=== PATIENT | male | born 1960 | race Caucasian/White ===

== ENCOUNTER 2017-01-13 08:14 | Outpatient (CLI) | payer OTHER ==
[2014-06-19 11:46] VITALS: BP 122/76
[2017-01-13 09:20] LABS: eGFR (African) > 60; eGFR (Non-African) > 60
== END 2017-01-13 08:15 ==
LOC: LAB 08:14
PROVIDERS: ATTEND Family Medicine
DX: E11.9 Type 2 diabetes mellitus without complications (principal)
CPT/HCPCS: 36415; 80053; 80061; 83036

== ENCOUNTER 2018-04-30 22:27 | Emergency (ER) | payer BC ==
--- NOTE | 2018-04-30 22:49 | ED Physician Documentation ---
General Adult - HISTORIAN Historian: patient - HPI Stated Complaint: abd pain Chief Complaint: General Adult Onset: hours Timing: still present Severity: moderate Further Comments: yes (Pt is a 57 yo male with abd pain in mid abdomen. Pain began 2 days ago and has been getting progressively worse. Pt has had similar pains in the past but it did not last as long and was not so intense. Pt has not had fever. He has had forceful vomiting since arriving in ER.) - ROS CONST: no problems EYES/ENT: none CVS/RESP: none GI/: abdominal pain MS/SKIN/LYMPH: none - PAST HX Past History: other (DM, HTN, Hernia repair.) Allergies/Adverse Reactions: Allergies Allergy/AdvReac Type Severity Reaction Status Date / Time No Known Allergies Allergy Verified 04/08/12 13:11 - SOCIAL HX Smoking History: non-smoker - FAMILY HX Family History: No - VITAL SIGNS Vital Signs: Vital Signs Temp Pulse Resp BP Pulse Ox 122/76 06/19/14 11:46 - REVIEWED ASSESSMENTS Nursing Assessment Reviewed: Yes Vitals Reviewed: Yes Progress - Progress Progress: Simethicone 80 mg po no change NS 1 L IVF Toradol [address] abdomen and pelvis with contrast Clinical history: Mid upper abdominal pain for 2 days. Nausea and vomiting. Contrast administered: 93 mL of Omnipaque. Findings: The visualized lung bases are clear. The liver is diffusely hypodense consistent with steatosis. Gallbladder is normally distended. There is no focal abnormality in the liver or spleen. There is no pancreatic or adrenal abnormality. Right renal cyst is present in the upper pole. The kidneys otherwise demonstrate symmetric enhancement. There is no retroperi toneal mass or significant adenopathy. Vascular calcification is present in the abdominal aorta without evidence of aneurysm. There is no retroperitoneal mass or significant adenopathy. The appendix is visualized and is within normal limits. Gas and stool are present in the colon. Bladder is unremarkable. There are mildly distended proximal and mid small bowel loops with decompressed distal small bowel suggesting partial obstruction. There is a small bowel feces sign in the mid abdomen at the level of the umbilicus. Small amount of free fluid seen in the pelvis. Impression: 1. Partial mid small bowel obstruction. 2. Small amount of free fluid in the pelvis. 3. Hepatic steatosis. 4. Vascular calcification NG tube placed Transfer to Hosp. Dr. Christiansen General Adult Physical Exam - PHYSICAL EXAM GENERAL APPEARANCE: moderate distress EENT: pharynx normal NECK: normal inspection, supple RESPIRATORY: no resp distress, chest non-tender, breath sounds normal CVS: reg rate & rhythm, heart sounds normal ABDOMEN: soft, tenderness (mid abdomen), decreased BS BACK: normal inspection, no CVA tenderness SKIN: warm/dry, normal color EXTREMITIES: non-tender, normal range of motion, no evidence of injury, no edema NEURO: oriented X3, motor nml, sensation nml Discharge Clincal Impression: Partial small bowel obstruction Referrals: Franny Verde MD [Primary Care Provider] - Condition: Stable Disposition: XFER SHT-TRM HOSP Decision to Admit: NO Decision Time: 03:15
[2018-04-30] MEDS ORDERED: 0.9 % SODIUM CHLORIDE 1,000 ML IV ONE (22:59)
[2018-04-30] MEDS ORDERED: SIMETHICONE 80 MG TAB.CHEW PO STA (22:59)
[2018-04-30 23:25] LABS: MEAN CORPUSCULAR HEMOGLOBIN 32.1 pg (28.0-34.0)
[2018-04-30 23:26] LABS: BASOPHILS % 0.6 (0.0-1.5); EOSINOPHILS % 2.7 % (0.0-6.8); MONOCYTES % 5.5 % (0.0-11.0); NEUTROPHILS # 8.4 # k/uL (1.4-7.7)
[2018-04-30 23:31] LABS: eGFR (Non-African) > 60
[2018-05-01] MEDS ORDERED: HYDROcodone /APAP 5/325 1 EACH TABLET PO ONE (00:26)
[2018-05-01] MEDS ORDERED: ONDANSETRON HCL 4 MG TAB.RAPDIS PO ONE (00:27)
--- NOTE | 2018-05-01 04:08 | Diagnostic Imaging Report ---
MAXIME RICHMOND [facility] [address] [facility] [address] [place] [address]. [id number] Report Submission Date: May 01, 2018 2:34:01 AM FROTHING MACHINE OPERATOR Patient Study Name: DANISH DELAROSA Date: May 01, 2018 1:46:45 AM FROTHING MACHINE OPERATOR Modality Type: CT\SR Gender: M Description: CT ABD PELVIS W/ CON : 64 Institution: [facility] Physician: MAXIME RICHMOND CT abdomen and pelvis with contrast Clinical history: Mid upper abdominal pain for 2 days. Nausea and vomiting. Contrast administered: 93 mL of Omnipaque. Findings: The visualized lung bases are clear. The liver is diffusely hypodense consistent with steatosis. Gallbladder is normally distended. There is no focal abnormality in the liver or spleen. There is no pancreatic or adrenal abnormality. Right renal cyst is present in the upper pole. The kidneys otherwise demonstrate symmetric enhancement. There is no retroperitoneal mass or significant adenopathy. Vascular calcification is present in the abdominal aorta without evidence of aneurysm. There is no retroperitoneal mass or significant adenopathy. The appendix is visualized and is within normal limits. Gas and stool are present in the colon. Bladder is unremarkable. There are mildly distended proximal and mid small bowel loops with decompressed distal small bowel suggesting partial obstruction. There is a small bowel feces sign in the mid abdomen at the level of the umbilicus. Small amount of free fluid seen in the pelvis. Impression: 1. Partial mid small bowel obstruction. 2. Small amount of free fluid in the pelvis. 3. Hepatic steatosis. 4. Vascular calcification Electronically signed on May 01, 2018 2:34:01 AM FROTHING MACHINE OPERATOR by: Rob THACKER
[2018-05-01] MEDS ORDERED: KETOROLAC TROMETHAMINE 30 MG/1ML VIAL IVP ONE (04:13)
[2018-05-01 04:15] VITALS: BP 137/105
--- NOTE | 2018-05-01 04:15 | Diagnostic Imaging Report ---
MAXIME RICHMOND [facility] [address] [facility].[address] [id number] Report Submission Date: May 01, 2018 4:12:14 AM TRAINMASTER Patient Study Name: DANISH DELAROSA Date: May 01, 2018 3:49:01 AM TRAINMASTER Modality Type: DX Gender: M Description: ABDOMEN 1 VIEW : 64 Institution: [facility] Physician: MAXIME RICHMOND The [facility] upright abdomen Clinical history: Nasogastric tube placement Findings: A nasogastric tube has been placed to body of the stomach. Electronically signed on May 01, 2018 4:12:14 AM TRAINMASTER by: Rodo THACKER
== END 2018-05-01 04:15 | disposition short-term general hospital (02) ==
LOC: ED 22:27
DX: K56.600 Partial intestinal obstruction, unspecified as to cause (principal)
CPT/HCPCS: 36415; 74018; 74177; 80053; 83690; 85025; 99285; J7030; Q9967; S1016

== ENCOUNTER 2018-11-24 13:05 | Outpatient (CLI) | payer BC | END 2018-11-24 13:07 | LOC: LAB 13:05 | PROVIDERS: ATTEND Family Medicine | DX: E11.9 Type 2 diabetes mellitus without complications (principal) | CPT/HCPCS: 36415; 83036 ==

== ENCOUNTER 2019-01-28 11:50 | Outpatient (CLI) | payer BC ==
[2019-01-28 13:10] LABS: BASOPHILS % 0.5 % (0.0-1.5); NEUTROPHILS # 3.6 # k/uL (1.4-7.7)
[2019-01-28 13:11] LABS: eGFR (Non-African) > 60
--- NOTE | 2019-01-28 13:56 | Diagnostic Imaging Report ---
PATIENT MR#: [id number] PATIENT PATIENT NAME: DANISH DELAROSA DATE OF : 1960 REFERRING PHYSICIAN: Ana Weber EXAM DATE: 01/28/2019 ACCESSION NUMBER: [id number] EXAM DESCRIPTION: US ABDOMEN LIMITED Exam: Abdominal ultrasound. History: History of umbilical hernia Real-time grayscale imaging of the abdomen is performed. Over the area of interest herniated loops o f bowel are identified occurring adjacent to what appears to be a previous hernia repair. No other unusual fluid collections or masses are identified. Impression: Recurrence abdominal wall hernia containing some loops of bowel are noted on this study adjacent to a previous repair. If indicated CT may be beneficial to further characterize. Read by: Dr. Rafael Jean Baptiste Transcribed by: Transcribed Date: Electronically signed by: Dr. Rafael Jean Baptiste Date signed: 01/28/2019 1:55:53 PM
== END 2019-01-28 12:20 ==
LOC: OUT 11:50
PROVIDERS: ATTEND Nurse Practitioner Family
DX: K42.9 Umbilical hernia without obstruction or gangrene (principal)
CPT/HCPCS: 36415; 76705; 80053; 85025; 99202

== ENCOUNTER 2019-02-09 13:48 | Outpatient (CLI) | payer BC ==
[~2019-02-09 13:48] MED LIST: BUPIVACAINE HCL 0.25% (2.5MG/ML) PF 10ML VIAL IV ONE; Lidocaine 1% 5ml 10 MG/ML VIAL ONE; methylPREDNISolone ACETATE 40 MG/ML VIAL IM ONE
--- NOTE | 2019-02-14 14:13 | CONSULTATION REPORT ---
CHIEF COMPLAINT: Bilateral thumb pain. HISTORY OF PRESENT ILLNESS: This 58-year-old white male is seen per request of Dr. Franny Verde in the family practice office here at [place], [place], for recommendations regarding treatment of bilateral first carpometacarpal joint pain. 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 He has noted over the last few months that he has had pain in the base of his thumbs. He used to work at a factory doing a lot of wiring, has always been quite active in use of his hands. He says his thumbs used to be rather hypermobile, but they have gotten stiffer over the years. He does have recent x-rays available for review, obtained at [facility], revealing first carpometacarpal joint space narrowing with some subluxation of the first metacarpal on the trapezium. I do not have the actual radiologists reading to review, but that is my assessment of those films. The patient does indicate that he is right-hand dominant, says the right hand hurts a little worse than the left. He has tried using a thumb spica splint device, says it helps minimally. He was placed on meloxicam 7.[address] Verde, he states. He did not think it was working, but it must have been, he reports, because it hurt a lot worse when he stopped taking the medication, notable within a day or two of cessation of the medication. He is back on the meloxicam currently, he states. He has not tried any analgesic creams or other preparations. MEDICATIONS: In addition to the meloxicam, he takes metformin 500 mg p.o. b.i.d. for noninsulin-requiring diabetes. He also takes atenolol 25 mg p.o. q.h.s. PAST MEDICAL HISTORY: The patient does report having hypertension. He reports he had blood in his lungs at one point, indicates that he had pneumonia in the past. PAST SURGICAL HISTORY: Positive for herniorrhaphies x 2 in 2007, umbilical in 1997 and 2007. SOCIAL HISTORY: Negative for tobacco use, alcohol use, illicit drug use or abuse. FAMILY HISTORY: Positive for hypertension in mother, hypertension and heart disease in father. REVIEW OF SYSTEMS: Positive for use of corrective lenses. He reports that his last hemoglobin A1c was 8.1 on a 11/24/2018. He does report he has had some arthritis in his hands. He reports no current respiratory issues despite history of pneumonia in 2008. He has no history of depression, anxiety or bipolar disorder. He denies urinary symptoms. Denies seizures or stroke. He denies easy bruising or bleeding. He indicates his skin is not itchy, dry or with lesions. PHYSICAL EXAMINATION: On physical exam, vital signs are recorded revealing temperature of 97.2, respiratory rate 18, pulse 71, blood pressure 144/106, oxygen saturation 95% on room air. The patient rates his current pain as 0/10 as he is not using his hands today, he says. HEENT normocephalic. Neck supple. Lungs clear to percussion bilaterally. Cardiovascular regular rate and rhythm with pulses present and symmetric at the radial aspect of the wrists bilaterally. The patient does have extremity exam which reveals tenderness at the base of the first metacarpal joints bilaterally. The tenderness is more on the dorsal side on the left, palmar side on the right. He does have [id number] decrease in motion at the first CMC joint with some discomfort expressed on compression of that joint while performing motion passively. There is good capillary refill distally, and he does have painless range of motion actively and passively of the IP and MP joints of the thumbs. He can dorsiflex, volar flex, radial and ulnar deviate the wrists bilaterally without difficulty actively and passively. IMPRESSION: 1. First carpometacarpal joint osteoarthritis, bilateral, right side more symptomatic. 2. Type 2 diabetes. 3. Upcoming hernia surgery. 4. Hypertension. RECOMMENDATIONS: Options are discussed with the patient. He likely would benefit from injections at the first carpometacarpal joints, and we discussed that. I did discuss with the patient various surgical options. He is to continue the meloxicam and I discussed activity modification with him. He may benefit from looking into seeing if another job is available which would not require as much use of his hands as this is going to be difficult for him correction, with or without any surgical intervention. I did discuss various options for surgical treatment including a localized fusion, a tendon graft interposition. He does not want to be off work that long. He is advised that he does have a condition which, if he can tolerate the discomfort, is not expected to absolutely require surgical treatment other than for symptomatic reasons. He acknowledges. We did discuss use of various analgesic creams and rubs and different splints which may be of benefit, all of which would likely require thumb spica immobilization, to use intermittently. These do not generally require a prescription. I did recommend that, after the hernia surgery has passed and he is getting over that, he can check back with myself or Dr. Rubin, and we can see if he wants to do anything further with this first carpometacarpal joint arthritis on one side or the other. He acknowledges. PROCEDURE: I sterilely injected each carpometacarpal joint with 20 mg Depo- Medrol with 0.5 mL of 0.25% plain Marcaine with 1% plain Xylocaine mixed in equal amounts. Thank you for the opportunity to evaluate this pleasant gentleman. Sincerely, David Warren MD/Accutype [id number] Job #[id number] cc: Danielle Oakes
== END 2019-02-09 14:20 ==
LOC: ORHTO 13:48
PROVIDERS: ATTEND Orthopaedic Surgery
DX: M19.041 Primary osteoarthritis, right hand (principal); E11.9 Type 2 diabetes mellitus without complications; I10 Essential (primary) hypertension
CPT/HCPCS: J1030; J3490

== ENCOUNTER 2019-02-21 13:33 | Outpatient (CLI) | payer BC | END 2019-02-21 13:43 | LOC: RT 13:33 | PROVIDERS: ATTEND Nurse Practitioner Family | DX: I49.8 Other specified cardiac arrhythmias (principal) | CPT/HCPCS: 93005 ==

== ENCOUNTER 2019-03-03 06:34 | Day surgery (SDC) | payer BC ==
[2019-03-03] MEDS ORDERED: PHENYLEPHRINE HCL 10 MG/1 ML ONE (08:48)
[2019-03-03] MEDS ORDERED: ACETAMINOPHEN 1,000 MG/100 ML INJ IV ONE ×2 (08:48→09:50)
[2019-03-03] MEDS ORDERED: ROCURONIUM BROMIDE 10 MG/ML 5ML VIAL ONE (08:48)
[2019-03-03] MEDS ORDERED: SEVOFLURANE 250 ML LIQUID IH ONE (08:48)
[2019-03-03] MEDS ORDERED: Lidocaine 1% 5ml 10 MG/ML VIAL ONE (08:48)
[2019-03-03] MEDS ORDERED: ONDANSETRON HCL/PF 4 MG/ 2ML VIAL ONE (08:48)
[2019-03-03] MEDS ORDERED: MIDAZOLAM HCL 2 MG/2 ML VIAL ONE (08:48)
[2019-03-03] MEDS ORDERED: LIDOCAINE HCL 2% PF 100MG/5ML VIAL IJ ONE (08:48)
[2019-03-03] MEDS ORDERED: DEXAMETHASONE SODIUM PHOSPHATE 10 MG/ML VIAL ONE (08:48)
[2019-03-03] MEDS ORDERED: PROPOFOL 200 MG/20 ML VIAL IV ONE (08:48)
[2019-03-03] MEDS ORDERED: ceFAZolin SODIUM 1 GM VIAL ONE (08:48)
[2019-03-03] MEDS ORDERED: BUPIV. HCL 0.25% (2.5MG/ML)/EPI. (1:200,000) PF 10 ML VIAL IM ONE (08:48)
[2019-03-03] MEDS ORDERED: HYDROmorphone HCL/PF 1 MG/ML VIAL ONE (09:25)
[2019-03-03] MEDS ORDERED: HYDROcodone /APAP 5/325 1 EACH TABLET ONE (10:06)
--- NOTE | 2019-03-07 07:22 | Operative Note ---
PROCEDURE DATE: 03/03/2019 PREOPERATIVE DIAGNOSIS: Recurrent umbilical hernia. POSTOPERATIVE DIAGNOSIS: Recurrent ventral hernia. PROCEDURES PERFORMED: Laparoscopic repair of ventral hernia with Surgimesh XB. SURGEON: Goran Arana M.D. INDICATIONS FOR PROCEDURE: Mr. Beatty is a 58-year-old male who presented with swelling in the periumbilical region. He has a history of umbilical hernia repairs done twice in the past. Both were open procedures. The patient was advised laparoscopic repair of same. Patient showed understanding and agreed to proceed. DESCRIPTION OF PROCEDURE: After explaining to the patient in detail and informed consent was obtained, the patient was identified in the preoperative holding area. The patient was transferred to the operating room and was placed in supine position. Sequential compressive devices were placed for DVT prophylaxis. Preoperative antibiotics were given. After induction of anesthesia, the abdomen was prepped and draped in a sterile fashion. Through a left upper quadrant 1-cm incision, and using Optiview technique, the peritoneal cavity was entered and pneumoperitoneum was created. Thereafter, under direct vision, a 12-mm trocar was placed in the left flank and a 5-mm trocar was placed in the left lower quadrant. On initial inspection, the patient was noted to have some omental adhesions in the midabdomen. This was gently taken down using hook electrocautery. There were a couple of hernial defects that were noted, one was 2 cm and the other was 1 cm in size, mostly containing omentum. This was all reduced. Once this was completed, I then chose a 10-cm size Surgimesh XB. This was inserted into the abdominal cavity. The mesh was then anchored onto the anterior abdominal wall and was tacked circumferentially at 1-cm intervals with Securestrap. A Prolene suture was placed in the center of the mesh to anchor it onto the anterior abdominal wall. Absolute hemostasis was ensured. The 12-mm port site incision was closed with 0 Vicryl. The skin was closed with 4-0 Monocryl for all the incisions. Dermabond was applied. The patient was stable at the end of the procedure. The patient was awakened from anesthesia and was transferred to the recovery room in stable condition. ESTIMATED BLOOD LOSS: Approximately 5 mL. CONDITION OF THE PATIENT: Stable. FLUIDS GIVEN: Per Anesthesia note. SPECIMEN(S) SENT: None. COMPLICATIONS: None. ANESTHESIA: General. Goran Arana M.D. ARIANNA/brayan (Please copy [facility] provider when applicable) Job #[id number] KIRSTIE
== END 2019-03-03 10:50 | disposition home or self-care (01) ==
LOC: OPSURG 06:34
PROVIDERS: ATTEND Surgery
DX: K43.2 Incisional hernia without obstruction or gangrene (principal)
CPT/HCPCS: 49652; J0690; J1170; J2001; J2250; J2370; J2405; J2704; A9270-GY